=== PATIENT | male | born 1990 | race Caucasian/White ===

== ENCOUNTER → 2016-12-15 | Outpatient (CLI) | payer BC ==
[2012-07-23 14:04] VITALS: BP 115/91
[~2016-12-15] MED LIST: CEPHALEXIN500 M1 PO; NO HOME MEDICATIONS; PERCOCET 325 MG1 TA2 PO
== END ==
LOC: LAB 10:15
DX: R50.9 Fever, unspecified (principal)

== ENCOUNTER → 2016-12-18 | Outpatient (CLI) | payer BC ==
[2012-07-23 14:04] VITALS: BP 115/91
== END ==
LOC: LAB 17:16
DX: R50.9 Fever, unspecified (principal)

== ENCOUNTER → 2018-12-20 | Outpatient (CLI) | payer OTHER ==
[2012-07-23 14:04] VITALS: BP 115/91
[2018-12-20 16:05] LABS: ALBUMIN 4.5 g/dL (3.5-5.0); POTASSIUM 4.2 mmol/L (3.5-5.1)
[2018-12-20 16:06] LABS: CALCIUM 9.6 mg/dL (8.3-10.5)
[2018-12-20 16:08] LABS: TOTAL PROTEIN 7.3 g/dL (6.4-8.3)
[2018-12-20 16:09] LABS: TOTAL BILIRUBIN 0.9 mg/dL (0.2-1.2)
[2018-12-20 16:22] LABS: HEMATOCRIT 44.1 % (42.0-52.0); HEMOGLOBIN 15.6 g/dL (13.5-18.0); MEAN CELL VOLUME 88 fl (78-100); MEAN CORPUSCULAR HEMOGLOBIN 31 pg (27-31); MEAN CORPUSCULAR HGB CONC 35 g/dL (33-37); MEAN PLATELET VOLUME 10.8 fl (7.4-10.4); PLATELET COUNT 243 K/mm3 (130-400); RED BLOOD COUNT 4.99 M/mm3 (4.20-5.60); RED CELL DISTRIBUTION WIDTH 12.5 % (11.5-14.5); WHITE BLOOD COUNT 5.9 K/mm3 (4.8-10.8)
[2018-12-20 16:39] LABS: BAND 1 % (0-10)
[2018-12-20 16:40] LABS: LYMPHOCYTE 21 % (20-51); MONOCYTE 6 % (3-10); NEUTROPHILS 60 % (42-75)
== END ==
LOC: LAB 15:43
PROVIDERS: Family Medicine
DX: Z00.00 Encounter for general adult medical examination without abnormal findings (principal); Z13.220 Encounter for screening for lipoid disorders

== ENCOUNTER → 2019-01-23 | Outpatient (CLI) | payer OTHER ==
[2012-07-23 14:04] VITALS: BP 115/91
== END ==
LOC: RAD 15:27
DX: G43.909 Migraine, unspecified, not intractable, without status migrainosus (principal); H53.9 Unspecified visual disturbance
CPT/HCPCS: Q9967

== ENCOUNTER 2020-08-17 09:28 | Emergency (ER) | payer OTHER ==
[2020-08-17 10:00] LABS: BASO # 0.01 (0.02-0.10); EOS % 3.6 % (0.0-4.0); HEMATOCRIT 38.1 % (42.0-52.0); HEMOGLOBIN 13.6 g/dL (13.5-18.0); LYMPH# 0.61 (1.50-4.00); MEAN CELL VOLUME 87 fl (78-100); MEAN CORPUSCULAR HEMOGLOBIN 31 pg (27-31); MEAN CORPUSCULAR HGB CONC 36 g/dL (33-37); MEAN PLATELET VOLUME 9.1 fl (7.4-10.4); NEU # 6.66 (1.40-6.50); PLATELET COUNT 218 K/mm3 (130-400); RED BLOOD COUNT 4.36 M/mm3 (4.20-5.60); WHITE BLOOD COUNT 8.3 K/mm3 (4.8-10.8)
[2020-08-17 10:17] LABS: ALBUMIN 3.7 g/dL (3.5-5.0); POTASSIUM 3.6 mmol/L (3.5-5.1)
[2020-08-17 10:18] LABS: CALCIUM 8.9 mg/dL (8.3-10.5)
[2020-08-17 10:21] LABS: TOTAL BILIRUBIN 6.7 mg/dL (0.2-1.2)
[2020-08-17 10:22] LABS: URINE APPEARANCE CLEAR; URINE BILIRUBIN 3+ (NEGATIVE); URINE BLOOD NEGATIVE (NEGATIVE); URINE COLOR AMBER; URINE GLUCOSE NEGATIVE (NEGATIVE); URINE KETONE NEGATIVE (NEGATIVE); URINE LEUKOCYTE ESTERASE NEGATIVE (NEGATIVE); URINE MUCUS PRESENT (NOT PRESENT); URINE NITRATE NEGATIVE (NEGATIVE); URINE PROTEIN(semi-quant) 1+ mg/dL (NEGATIVE); URINE UROBILINOGEN 12 mg/dL (NORMAL)
[2020-08-17 10:25] LABS: DIRECT BILIRUBIN 5.2 mg/dL (0.0-0.5)
[2020-08-17 10:31] LABS: PROTHROMBIN TIME 10.3 SECONDS (9.0-12.0)
[2020-08-17 12:00] VITALS: BP 119/61
[2020-08-20 15:27] LABS: E. CHAFFEENSIS IGG AB <1:64 titer (<1:64)
[2020-08-20 16:02] LABS: Q FEVER PHASE I IGG ANTIBODY <1:16 (<1:16); Q FEVER PHASE I IGM ANTIBODY <1:16 (<1:16)
[2020-08-24 15:13] LABS: LYME DISEASE EIA Negative (Negative)
== END 2020-08-17 12:01 | disposition short-term general hospital (02) ==
LOC: ED 09:28
PROVIDERS: Nurse Practitioner
DX: E80.6 Other disorders of bilirubin metabolism (principal); R17 Unspecified jaundice; S30.860A Insect bite (nonvenomous) of lower back and pelvis, initial encounter; Z20.822 Contact with and (suspected) exposure to COVID-19; W57.XXXA Bitten or stung by nonvenomous insect and other nonvenomous arthropods, initial encounter
CPT/HCPCS: J2405; J7030

== ENCOUNTER → 2020-08-23 | Outpatient (CLI) | payer OTHER ==
[2020-08-17 12:00] VITALS: BP 119/61
[2020-08-23 07:39] LABS: BASO # 0.03 (0.02-0.10); EOS # 0.18 (0.04-0.40); EOS % 3.3 % (0.0-4.0); HEMATOCRIT 43.8 % (42.0-52.0); LYMPH# 0.92 (1.50-4.00); MEAN CELL VOLUME 91 fl (78-100); MEAN CORPUSCULAR HEMOGLOBIN 31 pg (27-31); MEAN CORPUSCULAR HGB CONC 34 g/dL (33-37); MEAN PLATELET VOLUME 9.1 fl (7.4-10.4); MONO # 0.41 (0.20-0.80); NEU # 3.89 (1.40-6.50); PLATELET COUNT 282 K/mm3 (130-400); RED BLOOD COUNT 4.81 M/mm3 (4.20-5.60); RED CELL DISTRIBUTION WIDTH 13.5 % (11.5-14.5); WHITE BLOOD COUNT 5.5 K/mm3 (4.8-10.8)
[2020-08-23 07:40] LABS: ALBUMIN 3.6 g/dL (3.5-5.0)
[2020-08-23 07:42] LABS: TOTAL PROTEIN 7.1 g/dL (6.4-8.3)
[2020-08-23 07:44] LABS: TOTAL BILIRUBIN 9.8 mg/dL (0.2-1.2)
[2020-08-23 07:57] LABS: PROTHROMBIN TIME 9.7 SECONDS (9.0-12.0)
== END ==
LOC: LAB 07:11
PROVIDERS: Nurse Practitioner Primary Care
DX: Z01.89 Encounter for other specified special examinations (principal)

== ENCOUNTER → 2020-09-03 | Outpatient (CLI) | payer OTHER ==
[2020-09-03 07:50] LABS: ALBUMIN 3.6 g/dL (3.5-5.0); POTASSIUM 3.8 mmol/L (3.5-5.1)
[2020-09-03 07:51] LABS: CALCIUM 8.9 mg/dL (8.3-10.5); TOTAL BILIRUBIN 9.2 mg/dL (0.2-1.2); TOTAL PROTEIN 6.6 g/dL (6.4-8.3)
== END ==
LOC: LAB 06:18
DX: K83.09 Other cholangitis (principal)

== ENCOUNTER → 2020-09-10 | Outpatient (CLI) | payer OTHER ==
[2020-09-10 07:10] LABS: ALBUMIN 3.6 g/dL (3.5-5.0)
[2020-09-10 07:11] LABS: POTASSIUM 3.8 mmol/L (3.5-5.1)
[2020-09-10 07:13] LABS: TOTAL PROTEIN 6.4 g/dL (6.4-8.3)
[2020-09-10 07:15] LABS: TOTAL BILIRUBIN 7.9 mg/dL (0.2-1.2)
== END ==
LOC: LAB 06:30 → EDSTATUS 06:34
PROVIDERS: Nurse Practitioner Primary Care
DX: K83.09 Other cholangitis (principal)

== ENCOUNTER → 2020-09-17 | Outpatient (CLI) | payer OTHER ==
[2020-09-17 07:20] LABS: ALBUMIN 3.9 g/dL (3.5-5.0)
[2020-09-17 07:21] LABS: POTASSIUM 3.8 mmol/L (3.5-5.1)
[2020-09-17 07:22] LABS: CALCIUM 8.8 mg/dL (8.3-10.5)
[2020-09-17 07:23] LABS: TOTAL PROTEIN 6.7 g/dL (6.4-8.3)
[2020-09-17 07:25] LABS: TOTAL BILIRUBIN 4.5 mg/dL (0.2-1.2)
== END ==
LOC: LAB 06:19
DX: K83.09 Other cholangitis (principal)

== ENCOUNTER → 2020-09-29 | Outpatient (CLI) | payer OTHER ==
[2020-09-29 06:58] LABS: POTASSIUM 3.9 mmol/L (3.5-5.1)
[2020-09-29 06:59] LABS: CALCIUM 8.9 mg/dL (8.3-10.5)
[2020-09-29 07:00] LABS: TOTAL PROTEIN 6.6 g/dL (6.4-8.3)
[2020-09-29 07:02] LABS: TOTAL BILIRUBIN 2.3 mg/dL (0.2-1.2)
== END ==
LOC: LAB 06:30
PROVIDERS: Nurse Practitioner Primary Care
DX: K74.60 Unspecified cirrhosis of liver (principal)

== ENCOUNTER → 2020-10-08 | Outpatient (CLI) | payer OTHER ==
[2020-10-08 08:04] LABS: POTASSIUM 4.2 mmol/L (3.5-5.1)
[2020-10-08 08:07] LABS: TOTAL PROTEIN 6.5 g/dL (6.4-8.3)
[2020-10-08 08:09] LABS: TOTAL BILIRUBIN 1.7 mg/dL (0.2-1.2)
== END ==
LOC: LAB 06:20
DX: K74.60 Unspecified cirrhosis of liver (principal)

== ENCOUNTER → 2020-10-16 | Outpatient (CLI) | payer OTHER ==
[2020-10-16 08:51] LABS: ALBUMIN 4.3 g/dL (3.5-5.0); POTASSIUM 4.2 mmol/L (3.5-5.1)
[2020-10-16 08:53] LABS: TOTAL PROTEIN 7.1 g/dL (6.4-8.3)
[2020-10-16 08:55] LABS: TOTAL BILIRUBIN 2.2 mg/dL (0.2-1.2)
[2020-10-16 09:12] LABS: BASO # 0.03 (0.02-0.10); EOS # 0.34 (0.04-0.40); EOS % 8.3 % (0.0-4.0); HEMATOCRIT 38.8 % (42.0-52.0); HEMOGLOBIN 13.9 g/dL (13.5-18.0); MEAN CELL VOLUME 90 fl (78-100); MEAN CORPUSCULAR HEMOGLOBIN 32 pg (27-31); MEAN CORPUSCULAR HGB CONC 36 g/dL (33-37); MEAN PLATELET VOLUME 9.6 fl (7.4-10.4); MONO # 0.36 (0.20-0.80); NEU # 2.08 (1.40-6.50); PLATELET COUNT 217 K/mm3 (130-400); RED BLOOD COUNT 4.29 M/mm3 (4.20-5.60); RED CELL DISTRIBUTION WIDTH 14.1 % (11.5-14.5); WHITE BLOOD COUNT 4.1 K/mm3 (4.8-10.8)
== END ==
LOC: LAB 08:22
DX: K74.60 Unspecified cirrhosis of liver (principal); E80.6 Other disorders of bilirubin metabolism

== ENCOUNTER → 2020-10-27 | Outpatient (CLI) | payer OTHER ==
[2020-10-27 06:59] LABS: BASO # 0.03 (0.02-0.10); EOS # 0.66 (0.04-0.40); EOS % 12.1 % (0.0-4.0); HEMATOCRIT 42.6 % (42.0-52.0); LYMPH# 1.48 (1.50-4.00); MEAN CELL VOLUME 93 fl (78-100); MEAN CORPUSCULAR HEMOGLOBIN 33 pg (27-31); MEAN CORPUSCULAR HGB CONC 35 g/dL (33-37); MEAN PLATELET VOLUME 9.7 fl (7.4-10.4); MONO # 0.43 (0.20-0.80); NEU # 2.86 (1.40-6.50); PLATELET COUNT 207 K/mm3 (130-400); RED CELL DISTRIBUTION WIDTH 13.7 % (11.5-14.5); WHITE BLOOD COUNT 5.5 K/mm3 (4.8-10.8)
[2020-10-27 07:04] LABS: ALBUMIN 4.3 g/dL (3.5-5.0); POTASSIUM 3.9 mmol/L (3.5-5.1)
[2020-10-27 07:06] LABS: CALCIUM 9.1 mg/dL (8.3-10.5)
[2020-10-27 07:07] LABS: TOTAL PROTEIN 6.9 g/dL (6.4-8.3)
[2020-10-27 07:09] LABS: TOTAL BILIRUBIN 1.1 mg/dL (0.2-1.2)
== END ==
LOC: LAB 06:32
DX: E80.6 Other disorders of bilirubin metabolism (principal); K74.60 Unspecified cirrhosis of liver

== ENCOUNTER → 2020-11-09 | Outpatient (CLI) | payer OTHER ==
[2020-11-09 06:53] LABS: BASO # 0.04 (0.02-0.10); EOS # 0.81 (0.04-0.40); EOS % 13.7 % (0.0-4.0); HEMATOCRIT 45.1 % (42.0-52.0); HEMOGLOBIN 16.1 g/dL (13.5-18.0); LYMPH# 1.51 (1.50-4.00); MEAN CELL VOLUME 91 fl (78-100); MEAN CORPUSCULAR HEMOGLOBIN 33 pg (27-31); MEAN CORPUSCULAR HGB CONC 36 g/dL (33-37); MEAN PLATELET VOLUME 9.6 fl (7.4-10.4); MONO # 0.41 (0.20-0.80); NEU # 3.13 (1.40-6.50); PLATELET COUNT 214 K/mm3 (130-400); RED BLOOD COUNT 4.96 M/mm3 (4.20-5.60); RED CELL DISTRIBUTION WIDTH 12.7 % (11.5-14.5); WHITE BLOOD COUNT 5.9 K/mm3 (4.8-10.8)
[2020-11-09 07:15] LABS: ALBUMIN 4.3 g/dL (3.5-5.0); POTASSIUM 4.1 mmol/L (3.5-5.1)
[2020-11-09 07:16] LABS: CALCIUM 9.7 mg/dL (8.3-10.5)
[2020-11-09 07:18] LABS: TOTAL PROTEIN 7.2 g/dL (6.4-8.3)
[2020-11-09 07:19] LABS: TOTAL BILIRUBIN 1.5 mg/dL (0.2-1.2)
[2020-11-09 07:23] LABS: DIRECT BILIRUBIN 0.5 mg/dL (0.0-0.5)
== END ==
LOC: LAB 06:30
PROVIDERS: Nurse Practitioner Primary Care
DX: K74.60 Unspecified cirrhosis of liver (principal); K83.09 Other cholangitis

== ENCOUNTER → 2020-11-18 | Outpatient (CLI) | payer OTHER ==
[2020-11-18 07:38] LABS: ALBUMIN 4.1 g/dL (3.5-5.0); POTASSIUM 4.1 mmol/L (3.5-5.1)
[2020-11-18 07:39] LABS: CALCIUM 9.5 mg/dL (8.3-10.5)
[2020-11-18 07:40] LABS: TOTAL PROTEIN 6.9 g/dL (6.4-8.3)
[2020-11-18 07:42] LABS: TOTAL BILIRUBIN 1.1 mg/dL (0.2-1.2)
[2020-11-18 07:46] LABS: DIRECT BILIRUBIN 0.4 mg/dL (0.0-0.5)
[2020-11-18 07:56] LABS: BASO # 0.02 (0.02-0.10); EOS # 0.41 (0.04-0.40); EOS % 7.7 % (0.0-4.0); HEMATOCRIT 42.7 % (42.0-52.0); HEMOGLOBIN 15.2 g/dL (13.5-18.0); LYMPH# 1.85 (1.50-4.00); MEAN CELL VOLUME 91 fl (78-100); MEAN CORPUSCULAR HEMOGLOBIN 32 pg (27-31); MEAN CORPUSCULAR HGB CONC 36 g/dL (33-37); MEAN PLATELET VOLUME 9.4 fl (7.4-10.4); MONO # 0.35 (0.20-0.80); NEU # 2.68 (1.40-6.50); PLATELET COUNT 214 K/mm3 (130-400); RED BLOOD COUNT 4.71 M/mm3 (4.20-5.60); RED CELL DISTRIBUTION WIDTH 12.3 % (11.5-14.5); WHITE BLOOD COUNT 5.3 K/mm3 (4.8-10.8)
== END ==
LOC: LAB 07:19
DX: K83.09 Other cholangitis (principal)

== ENCOUNTER → 2020-12-14 | Outpatient (CLI) | payer OTHER ==
[2020-12-14 07:10] LABS: BASO # 0.04 (0.02-0.10); EOS # 0.46 (0.04-0.40); EOS % 8.3 % (0.0-4.0); HEMATOCRIT 42.5 % (42.0-52.0); HEMOGLOBIN 15.4 g/dL (13.5-18.0); LYMPH# 1.55 (1.50-4.00); MEAN CELL VOLUME 89 fl (78-100); MEAN CORPUSCULAR HEMOGLOBIN 32 pg (27-31); MEAN CORPUSCULAR HGB CONC 36 g/dL (33-37); MEAN PLATELET VOLUME 9.7 fl (7.4-10.4); MONO # 0.45 (0.20-0.80); NEU # 3.01 (1.40-6.50); PLATELET COUNT 208 K/mm3 (130-400); RED BLOOD COUNT 4.77 M/mm3 (4.20-5.60); WHITE BLOOD COUNT 5.5 K/mm3 (4.8-10.8)
[2020-12-14 07:12] LABS: ALBUMIN 4.1 g/dL (3.5-5.0); POTASSIUM 3.7 mmol/L (3.5-5.1)
[2020-12-14 07:13] LABS: CALCIUM 9.3 mg/dL (8.3-10.5)
[2020-12-14 07:14] LABS: TOTAL PROTEIN 6.7 g/dL (6.4-8.3)
[2020-12-14 07:16] LABS: TOTAL BILIRUBIN 1.6 mg/dL (0.2-1.2)
[2020-12-14 07:20] LABS: DIRECT BILIRUBIN 0.5 mg/dL (0.0-0.5)
== END ==
LOC: LAB 06:43
DX: K83.09 Other cholangitis (principal)

== ENCOUNTER → 2021-03-15 | Outpatient (CLI) | payer OTHER ==
[2021-03-15 06:46] LABS: BASO # 0.03 K/mm3 (0.02-0.10); EOS # 0.58 K/mm3 (0.04-0.40); EOS % 10.5 % (0.0-4.0); HEMATOCRIT 45.1 % (42.0-52.0); HEMOGLOBIN 15.9 g/dL (13.5-18.0); LYMPH# 1.33 K/mm3 (1.50-4.00); MEAN CELL VOLUME 91 fl (78-100); MEAN CORPUSCULAR HEMOGLOBIN 32 pg (27-31); MEAN CORPUSCULAR HGB CONC 35 g/dL (33-37); MEAN PLATELET VOLUME 9.4 fl (7.4-10.4); MONO # 0.41 K/mm3 (0.20-0.80); NEU # 3.17 K/mm3 (1.40-6.50); PLATELET COUNT 242 K/mm3 (130-400); RED BLOOD COUNT 4.96 M/mm3 (4.20-5.60); RED CELL DISTRIBUTION WIDTH 12.9 % (11.5-14.5); WHITE BLOOD COUNT 5.5 K/mm3 (4.8-10.8)
[2021-03-15 06:55] LABS: ALBUMIN 4.2 g/dL (3.5-5.0); POTASSIUM 4.2 mmol/L (3.5-5.1)
[2021-03-15 06:56] LABS: CALCIUM 9.5 mg/dL (8.3-10.5)
[2021-03-15 06:58] LABS: TOTAL PROTEIN 7.1 g/dL (6.4-8.3)
[2021-03-15 06:59] LABS: TOTAL BILIRUBIN 0.9 mg/dL (0.2-1.2)
[2021-03-15 07:03] LABS: DIRECT BILIRUBIN 0.4 mg/dL (0.0-0.5)
== END ==
LOC: LAB 06:32
DX: K83.09 Other cholangitis (principal); E80.6 Other disorders of bilirubin metabolism